=== PATIENT | female | born 1930 | race Caucasian/White ===

== ENCOUNTER 2020-04-11 17:53 | Inpatient (IN) | payer MEDICARE, OTHER ==
[2020-04-11] MEDS ORDERED: Senokot 8.6 MG TAB PO PRN (23:13)
[2020-04-11] MEDS ORDERED: Dextrose 5% in Water 1,000 ML IV PRN (23:17)
[2020-04-11] MEDS ORDERED: Dextrose 50% Abboject 50 ML SYRINGE IVP PRN (23:17)
[2020-04-12] MEDS: Levothyroxine Sodium 100 MCG TAB PO SCH (05:17)
[2020-04-12 08:23] LABS: INR-International Normal Ratio 1.9; Prothrombin Time 21.7 sec (12.0-14.7)
[2020-04-12] MEDS: metFORMIN 500 MG TAB PO SCH (08:50)
[2020-04-12] MEDS: Furosemide 20 MG TAB PO SCH ×2 (08:50→09:47)
[2020-04-12] MEDS: Lisinopril 10 MG TAB PO SCH ×2 (08:51→09:47)
[2020-04-12] MEDS: Metoprolol Tartrate 25 MG TAB PO SCH ×2 (08:51→09:47)
[2020-04-12] MEDS: Hydrochlorothiazide 25 MG TAB PO SCH ×2 (08:51→09:47)
[2020-04-12] MEDS: HumaLOG 300 UNITS/3 ML VIAL SC PRN ×2 (08:55→12:45)
[2020-04-12] MEDS: Lantus 1000 UNITS/10 ML VIAL SC SCH ×2 (08:55→20:52)
[2020-04-12] MEDS: Warfarin Sodium 2.5 MG TAB PO SCH (16:59)
[2020-04-12] MEDS: Warfarin Sodium 5 MG TAB PO SCH (16:59)
[2020-04-12] MEDS: Atorvastatin Calcium 10 MG TAB PO SCH (21:01)
--- NOTE | 2020-04-12 23:42 | HP ---
REASON FOR ADMISSION: For skilled rehabilitation at [facility] status post acute encephalopathy, acute congestive heart failure, and physical deconditioning. HISTORY OF PRESENT ILLNESS: Ms. Jones is a very pleasant 89-year-old female, who lives in [place] by herself. The patient was brought to the emergency room by paramedics for altered mental status. Upon admission, she was not in any position of giving any history and the patient's power of family law attorney was unable to provide any history as they could not get him on the phone at that time. Patient en route to the ER, was given Ativan 4 mg and morphine due to some back pain. In the emergency room, she received Rocephin and a COVID screen was sent, which turned out to be negative. Chest x-ray was normal, but showed some mild cardiomegaly and her urine was benign. The patient did have some leukocytosis, so the decision was made to admit the patient for further workup and care. She had an MRI of the brain on the 06 of April and that showed no acute abnormalities. She had an EEG which was negative. She had an echocardiogram which showed an EF of 50% to 55%. The patient's etiology for the metabolic encephalopathy was unclear, but she was improving and leukocytosis also slowly improved. The patient does have a history of chronic kidney disease stage 3 and that was consistent. She appeared to have some pulmonary vascular congestion and cardiomegaly on a chest x-ray. She received Lasix upon admission. The patient's condition slowly improved, but she was noted to be very deconditioned and since she lives by herself, the decision was made to transfer the patient to a swing bed prior to discharge back to her home. Upon evaluation of the patient today, she was happy to be in facility and start physical therapy. She was little bit upset about her health and is concerned about not knowing the etiology of the encephalopathy. She is worried as she lives by herself. The patient states she does have a provider that comes to cook and clean for her. She does not have any family around, but she does have a power of family law attorney, who comes to her home to see her pretty frequently. PAST MEDICAL HISTORY: Atrial fibrillation. The patient's chronic anticoagulants were warfarin. The patient does have a history of pulmonary embolism. She does have a history of dementia. She does have diabetes and hypothyroidism. PAST SURGICAL HISTORY: Total hip replacement, bilateral; carpal tunnel release, bilateral. PAST FAMILY HISTORY: Unremarkable. SOCIAL HISTORY: The patient lives by herself in her home. She denies any tobacco, alcohol, or illicit drug use. CODE STATUS: The patient is a DNR. REVIEW OF SYSTEMS: As noted in H and P. Otherwise, all other systems reviewed x14 were negative. HOME MEDICATIONS: Lipitor 10 at bedtime; furosemide 20 daily; hydrochlorothiazide 12.5 daily; Lantus 10 subcu b.i.d.; levothyroxine 100 mcg daily; lisinopril 10 daily; metformin 1000 daily; metoprolol 25 daily; warfarin 7.5 mg Saturday, Saturday, , Saturday and 5 mg Saturday, Saturday, Saturday. PHYSICAL EXAMINATION: VITAL SIGNS: Temperature 98.6, pulse 86, respirations 16, O2 saturation 96% on room air, blood pressure 117/71. GENERAL: The patient is alert, awake, and oriented x3. She is very conversational, but tearful talking about her health today. She is sitting comfortably in bed. HEENT: Normocephalic, atraumatic. Moist oral mucous membrane. NECK: Supple. No JVD. No carotid bruit. RESPIRATORY: Clear to auscultation bilateral. No wheezing. No crackles. CARDIOVASCULAR: S1 and S2. No murmurs, no gallops, no rubs. ABDOMEN: Positive bowel sounds. Soft, nontender. No guarding. No rigidity. EXTREMITIES: +1 bilateral edema. SKIN: No lesions. No rashes. NEUROLOGICAL: No focal deficits. Cranial nerves 2 through 12 grossly intact. MUSCULOSKELETAL: Generalized weakness. PSYCHIATRIC: Flat affect. Alert, awake, and oriented x3. ASSESSMENT: 1. Acute metabolic encephalopathy, resolved. 2. Physical deconditioning. 3. Atrial fibrillation. 4. Chronic kidney disease stage 3. 5. Dementia without behavior disturbance. 6. Diabetes type 2. 7. Hypercalcemia. 8. Unspecified parathyroidism. 9. Leukocytosis, improving. 10. Hypertension. 11. Hypothyroidism. PLAN: The patient is an 89-year-old female, who is being admitted to [facility]. We will consult Physical Therapy to help with gait stability and strengthening. We will consult Occupational Therapy to help with activities of daily living. We will consult Speech Therapy with diet consistency. We will monitor the patient closely for any hemodynamic instability. We will place the patient on Accu-Chek before meals and at bedtime. Estimated length of stay, 2 to 3 weeks. Code status is DNR. DISCHARGE DISPOSITION: Back to her home. Job ID: [id number] MTDD
[2020-04-13] MEDS: Acetaminophen 325 MG TAB PO PRN ×2 (01:55→21:32)
[2020-04-13] MEDS: Levothyroxine Sodium 100 MCG TAB PO SCH (05:02)
[2020-04-13 05:35] LABS: INR-International Normal Ratio 1.6; Prothrombin Time 18.8 sec (12.0-14.7)
[2020-04-13] MEDS: metFORMIN 500 MG TAB PO SCH (08:26)
[2020-04-13] MEDS: Lantus 1000 UNITS/10 ML VIAL SC SCH ×2 (08:26→21:32)
[2020-04-13] MEDS: Hydrochlorothiazide 25 MG TAB PO SCH (08:54)
[2020-04-13] MEDS: Furosemide 20 MG TAB PO SCH (08:54)
[2020-04-13] MEDS: Metoprolol Tartrate 25 MG TAB PO SCH (08:54)
[2020-04-13] MEDS: Lisinopril 10 MG TAB PO SCH (08:54)
[2020-04-13] MEDS: HumaLOG 300 UNITS/3 ML VIAL SC PRN (12:06)
[2020-04-13] MEDS: Warfarin Sodium 5 MG TAB PO SCH (16:51)
[2020-04-13] MEDS: Atorvastatin Calcium 10 MG TAB PO SCH (21:31)
[2020-04-14] MEDS: Acetaminophen 325 MG TAB PO PRN (05:28)
[2020-04-14] MEDS: Levothyroxine Sodium 100 MCG TAB PO SCH (05:28)
[2020-04-14 05:57] LABS: INR-International Normal Ratio 1.5; Prothrombin Time 18.2 sec (12.0-14.7)
[2020-04-14] MEDS: Furosemide 20 MG TAB PO SCH (08:28)
[2020-04-14] MEDS: metFORMIN 500 MG TAB PO SCH (08:28)
[2020-04-14] MEDS: Lantus 1000 UNITS/10 ML VIAL SC SCH ×2 (08:32→21:20)
[2020-04-14] MEDS: HumaLOG 300 UNITS/3 ML VIAL SC PRN (12:46)
[2020-04-14] MEDS: Warfarin Sodium 2.5 MG TAB PO SCH (17:05)
[2020-04-14] MEDS: Warfarin Sodium 5 MG TAB PO SCH (17:05)
[2020-04-14] MEDS: Loratadine 10 MG TAB PO PRN (21:20)
[2020-04-14] MEDS: Atorvastatin Calcium 10 MG TAB PO SCH (21:20)
[2020-04-15] MEDS: Levothyroxine Sodium 100 MCG TAB PO SCH (05:34)
[2020-04-15 05:49] LABS: INR-International Normal Ratio 1.6
[2020-04-15] MEDS: metFORMIN 500 MG TAB PO SCH (08:33)
[2020-04-15] MEDS: Lantus 1000 UNITS/10 ML VIAL SC SCH ×2 (08:33→21:38)
[2020-04-15] MEDS: Furosemide 20 MG TAB PO SCH (08:33)
[2020-04-15] MEDS: HumaLOG 300 UNITS/3 ML VIAL SC PRN (12:07)
[2020-04-15] MEDS: Warfarin Sodium 5 MG TAB PO SCH (16:34)
[2020-04-15] MEDS: Loratadine 10 MG TAB PO PRN (16:34)
[2020-04-15] MEDS: Atorvastatin Calcium 10 MG TAB PO SCH (21:38)
[2020-04-15] MEDS: Acetaminophen 325 MG TAB PO PRN (23:39)
[2020-04-16 05:57] LABS: Prothrombin Time 22.5 sec (12.0-14.7)
[2020-04-16] MEDS: Levothyroxine Sodium 100 MCG TAB PO SCH (06:06)
[2020-04-16] MEDS: metFORMIN 500 MG TAB PO SCH (08:35)
[2020-04-16] MEDS: Furosemide 20 MG TAB PO SCH (08:35)
[2020-04-16] MEDS: Loratadine 10 MG TAB PO PRN (08:35)
[2020-04-16] MEDS: Lantus 1000 UNITS/10 ML VIAL SC SCH ×2 (08:35→21:35)
[2020-04-16] MEDS: HumaLOG 300 UNITS/3 ML VIAL SC PRN (12:12)
[2020-04-16] MEDS: Warfarin Sodium 2.5 MG TAB PO SCH (17:22)
[2020-04-16] MEDS: Warfarin Sodium 5 MG TAB PO SCH (17:22)
[2020-04-16] MEDS: Acetaminophen 325 MG TAB PO PRN (21:35)
[2020-04-16] MEDS: Atorvastatin Calcium 10 MG TAB PO SCH (21:35)
[2020-04-17] MEDS: Levothyroxine Sodium 100 MCG TAB PO SCH (05:16)
[2020-04-17 06:19] LABS: INR-International Normal Ratio 2.2; Prothrombin Time 24.2 sec (12.0-14.7)
[2020-04-17] MEDS: metFORMIN 500 MG TAB PO SCH (08:28)
[2020-04-17] MEDS: Loratadine 10 MG TAB PO PRN (08:29)
[2020-04-17] MEDS: Furosemide 20 MG TAB PO SCH (08:29)
[2020-04-17] MEDS: Lantus 1000 UNITS/10 ML VIAL SC SCH ×2 (08:29→21:20)
[2020-04-17] MEDS: Warfarin Sodium 2.5 MG TAB PO SCH (16:51)
[2020-04-17] MEDS: Warfarin Sodium 5 MG TAB PO SCH (16:51)
[2020-04-17] MEDS: Acetaminophen 325 MG TAB PO PRN (20:04)
[2020-04-17] MEDS: Atorvastatin Calcium 10 MG TAB PO SCH (20:05)
[2020-04-18] MEDS: Levothyroxine Sodium 100 MCG TAB PO SCH (05:29)
[2020-04-18 05:52] LABS: INR-International Normal Ratio 2.4; Prothrombin Time 25.8 sec (12.0-14.7)
[2020-04-18] MEDS: metFORMIN 500 MG TAB PO SCH (08:41)
[2020-04-18] MEDS: Furosemide 20 MG TAB PO SCH (08:42)
[2020-04-18] MEDS: Lantus 1000 UNITS/10 ML VIAL SC SCH ×2 (08:42→21:27)
[2020-04-18] MEDS: Acetaminophen 325 MG TAB PO PRN ×2 (16:50→21:27)
[2020-04-18] MEDS: Warfarin Sodium 5 MG TAB PO SCH (16:51)
[2020-04-18] MEDS: Atorvastatin Calcium 10 MG TAB PO SCH (21:27)
[2020-04-19 05:49] LABS: INR-International Normal Ratio 2.4; Prothrombin Time 26.1 sec (12.0-14.7)
[2020-04-19] MEDS: Levothyroxine Sodium 100 MCG TAB PO SCH (05:52)
[2020-04-19] MEDS: Furosemide 20 MG TAB PO SCH (08:07)
[2020-04-19] MEDS: Loratadine 10 MG TAB PO PRN (08:07)
[2020-04-19] MEDS: metFORMIN 500 MG TAB PO SCH (08:08)
[2020-04-19] MEDS: Lantus 1000 UNITS/10 ML VIAL SC SCH ×2 (08:08→21:07)
[2020-04-19] MEDS: Warfarin Sodium 5 MG TAB PO SCH (17:03)
[2020-04-19] MEDS: Warfarin Sodium 2.5 MG TAB PO SCH (17:04)
[2020-04-19] MEDS: Acetaminophen 325 MG TAB PO PRN ×2 (17:07→20:07)
[2020-04-19] MEDS: Atorvastatin Calcium 10 MG TAB PO SCH (20:02)
[2020-04-20] MEDS: Levothyroxine Sodium 100 MCG TAB PO SCH (05:24)
[2020-04-20 06:00] LABS: INR-International Normal Ratio 2.3; Prothrombin Time 25.2 sec (12.0-14.7)
[2020-04-20] MEDS: Loratadine 10 MG TAB PO PRN (07:54)
[2020-04-20] MEDS: Furosemide 20 MG TAB PO SCH (07:55)
[2020-04-20] MEDS: metFORMIN 500 MG TAB PO SCH (07:55)
[2020-04-20] MEDS: Lantus 1000 UNITS/10 ML VIAL SC SCH ×2 (07:56→20:21)
[2020-04-20] MEDS: Acetaminophen 325 MG TAB PO PRN ×2 (07:59→20:25)
[2020-04-20] MEDS: Warfarin Sodium 5 MG TAB PO SCH (17:09)
[2020-04-20] MEDS: Atorvastatin Calcium 10 MG TAB PO SCH (20:20)
[2020-04-21] MEDS: Levothyroxine Sodium 100 MCG TAB PO SCH (05:32)
[2020-04-21 05:49] LABS: INR-International Normal Ratio 2.3; Prothrombin Time 24.8 sec (12.0-14.7)
[2020-04-21] MEDS: Furosemide 20 MG TAB PO SCH (08:15)
[2020-04-21] MEDS: metFORMIN 500 MG TAB PO SCH (08:15)
[2020-04-21] MEDS: Lantus 1000 UNITS/10 ML VIAL SC SCH ×2 (08:16→20:17)
[2020-04-21] MEDS: Loratadine 10 MG TAB PO PRN (17:15)
[2020-04-21] MEDS: Warfarin Sodium 5 MG TAB PO SCH (17:16)
[2020-04-21] MEDS: Warfarin Sodium 2.5 MG TAB PO SCH (17:16)
[2020-04-21] MEDS: Atorvastatin Calcium 10 MG TAB PO SCH (20:18)
[2020-04-21] MEDS: Acetaminophen 325 MG TAB PO PRN (20:21)
[2020-04-22] MEDS: Levothyroxine Sodium 100 MCG TAB PO SCH (05:24)
[2020-04-22 05:50] LABS: INR-International Normal Ratio 2.4; Prothrombin Time 25.7 sec (12.0-14.7)
[2020-04-22] MEDS: metFORMIN 500 MG TAB PO SCH (09:56)
[2020-04-22] MEDS: Acetaminophen 325 MG TAB PO PRN ×2 (09:56→20:46)
[2020-04-22] MEDS: Furosemide 20 MG TAB PO SCH (09:57)
[2020-04-22] MEDS: Lantus 1000 UNITS/10 ML VIAL SC SCH ×2 (09:57→20:47)
[2020-04-22] MEDS: Warfarin Sodium 5 MG TAB PO SCH (17:23)
[2020-04-22] MEDS: Atorvastatin Calcium 10 MG TAB PO SCH (20:47)
[2020-04-23] MEDS: Levothyroxine Sodium 100 MCG TAB PO SCH (05:28)
[2020-04-23] MEDS: metFORMIN 500 MG TAB PO SCH (09:01)
[2020-04-23] MEDS: Lantus 1000 UNITS/10 ML VIAL SC SCH ×2 (09:01→20:29)
[2020-04-23] MEDS: Furosemide 20 MG TAB PO SCH (09:01)
[2020-04-23] MEDS: Warfarin Sodium 2.5 MG TAB PO SCH (17:20)
[2020-04-23] MEDS: Warfarin Sodium 5 MG TAB PO SCH (17:21)
[2020-04-23] MEDS: Atorvastatin Calcium 10 MG TAB PO SCH (20:29)
[2020-04-23] MEDS: Acetaminophen 325 MG TAB PO PRN (20:32)
[2020-04-24] MEDS: Acetaminophen 325 MG TAB PO PRN ×2 (04:51→20:52)
[2020-04-24] MEDS: Levothyroxine Sodium 100 MCG TAB PO SCH (04:53)
[2020-04-24] MEDS: Loratadine 10 MG TAB PO PRN (04:53)
[2020-04-24] MEDS: metFORMIN 500 MG TAB PO SCH (08:29)
[2020-04-24] MEDS: Furosemide 20 MG TAB PO SCH (08:29)
[2020-04-24] MEDS: Lantus 1000 UNITS/10 ML VIAL SC SCH ×2 (08:29→20:51)
[2020-04-24] MEDS: Warfarin Sodium 5 MG TAB PO SCH (17:07)
[2020-04-24] MEDS: Warfarin Sodium 2.5 MG TAB PO SCH (17:07)
[2020-04-24] MEDS: Atorvastatin Calcium 10 MG TAB PO SCH (20:52)
[2020-04-25] MEDS: Levothyroxine Sodium 100 MCG TAB PO SCH (05:52)
[2020-04-25] MEDS: Furosemide 20 MG TAB PO SCH (07:58)
[2020-04-25] MEDS: metFORMIN 500 MG TAB PO SCH (07:58)
[2020-04-25] MEDS: Lantus 1000 UNITS/10 ML VIAL SC SCH ×2 (07:59→21:03)
[2020-04-25 09:12] LABS: INR-International Normal Ratio 2.1; Prothrombin Time 23.8 sec (12.0-14.7)
[2020-04-25] MEDS ORDERED: Loratadine 10 MG TAB PO SCH (15:45)
[2020-04-25] MEDS: Warfarin Sodium 5 MG TAB PO SCH (16:59)
[2020-04-25] MEDS: Polyethylene Glycol OPTH DROP 15 ML BOT EA EYE PRN ×2 (16:59→21:01)
[2020-04-25] MEDS: Acetaminophen 325 MG TAB PO PRN (21:00)
[2020-04-25] MEDS: Atorvastatin Calcium 10 MG TAB PO SCH (21:01)
[2020-04-26] MEDS: Levothyroxine Sodium 100 MCG TAB PO SCH (05:41)
[2020-04-26] MEDS: metFORMIN 500 MG TAB PO SCH (08:06)
[2020-04-26] MEDS: Loratadine 10 MG TAB PO SCH (08:06)
[2020-04-26] MEDS: Furosemide 20 MG TAB PO SCH (08:07)
[2020-04-26] MEDS: Lantus 1000 UNITS/10 ML VIAL SC SCH ×2 (08:07→20:36)
[2020-04-26] MEDS: Warfarin Sodium 7.5 MG TAB PO SCH (16:59)
[2020-04-26] MEDS: Acetaminophen 325 MG TAB PO PRN (17:07)
[2020-04-26] MEDS: Atorvastatin Calcium 10 MG TAB PO SCH (20:35)
[2020-04-27 05:51] LABS: INR-International Normal Ratio 2.4
[2020-04-27] MEDS: Levothyroxine Sodium 100 MCG TAB PO SCH (06:00)
[2020-04-27] MEDS: Acetaminophen 325 MG TAB PO PRN ×2 (06:01→20:37)
[2020-04-27] MEDS: Polyethylene Glycol OPTH DROP 15 ML BOT EA EYE PRN ×2 (08:04→20:34)
[2020-04-27] MEDS: Lantus 1000 UNITS/10 ML VIAL SC SCH ×2 (08:04→20:34)
[2020-04-27] MEDS: Loratadine 10 MG TAB PO SCH (08:05)
[2020-04-27] MEDS: metFORMIN 500 MG TAB PO SCH (08:05)
[2020-04-27] MEDS: Furosemide 20 MG TAB PO SCH (08:05)
[2020-04-27] MEDS: Warfarin Sodium 5 MG TAB PO SCH (17:31)
[2020-04-27] MEDS: Atorvastatin Calcium 10 MG TAB PO SCH (20:34)
[2020-04-28] MEDS: Levothyroxine Sodium 100 MCG TAB PO SCH (05:15)
[2020-04-28 06:01] LABS: INR-International Normal Ratio 2.6; Prothrombin Time 27.3 sec (12.0-14.7)
[2020-04-28] MEDS: metFORMIN 500 MG TAB PO SCH (09:26)
[2020-04-28] MEDS: Furosemide 20 MG TAB PO SCH (09:26)
[2020-04-28] MEDS: Loratadine 10 MG TAB PO SCH (09:27)
[2020-04-28] MEDS: Lantus 1000 UNITS/10 ML VIAL SC SCH ×2 (09:29→20:53)
[2020-04-28] MEDS: Warfarin Sodium 7.5 MG TAB PO SCH (17:51)
[2020-04-28] MEDS: Atorvastatin Calcium 10 MG TAB PO SCH (20:53)
[2020-04-28] MEDS: Acetaminophen 325 MG TAB PO PRN (20:53)
[2020-04-29 05:51] LABS: INR-International Normal Ratio 2.6; Prothrombin Time 27.8 sec (12.0-14.7)
[2020-04-29] MEDS: Levothyroxine Sodium 100 MCG TAB PO SCH (05:52)
[2020-04-29] MEDS: metFORMIN 500 MG TAB PO SCH (08:50)
[2020-04-29] MEDS: Furosemide 20 MG TAB PO SCH (08:50)
[2020-04-29] MEDS: Polyethylene Glycol OPTH DROP 15 ML BOT EA EYE PRN (08:51)
[2020-04-29] MEDS: Loratadine 10 MG TAB PO SCH (08:51)
[2020-04-29] MEDS: Lantus 1000 UNITS/10 ML VIAL SC SCH ×2 (08:52→20:53)
[2020-04-29] MEDS: Warfarin Sodium 5 MG TAB PO SCH (17:35)
[2020-04-29] MEDS: Atorvastatin Calcium 10 MG TAB PO SCH (20:51)
[2020-04-29] MEDS: Acetaminophen 325 MG TAB PO PRN (20:51)
[2020-04-30] MEDS: Levothyroxine Sodium 100 MCG TAB PO SCH (05:20)
[2020-04-30 06:09] LABS: INR-International Normal Ratio 2.8; Prothrombin Time 29.2 sec (12.0-14.7)
[2020-04-30] MEDS: Polyethylene Glycol OPTH DROP 15 ML BOT EA EYE PRN ×2 (09:02→20:57)
[2020-04-30] MEDS: metFORMIN 500 MG TAB PO SCH (09:02)
[2020-04-30] MEDS: Lantus 1000 UNITS/10 ML VIAL SC SCH ×2 (09:03→20:56)
[2020-04-30] MEDS: Furosemide 20 MG TAB PO SCH (09:03)
[2020-04-30] MEDS: Loratadine 10 MG TAB PO SCH (09:03)
[2020-04-30] MEDS: HumaLOG 300 UNITS/3 ML VIAL SC PRN (11:56)
[2020-04-30] MEDS: Warfarin Sodium 7.5 MG TAB PO SCH (16:58)
[2020-04-30] MEDS: Atorvastatin Calcium 10 MG TAB PO SCH (20:56)
[2020-04-30] MEDS: Acetaminophen 325 MG TAB PO PRN (20:56)
[2020-05-01 06:10] LABS: INR-International Normal Ratio 2.8; Prothrombin Time 29.3 sec (12.0-14.7)
[2020-05-01] MEDS: Levothyroxine Sodium 100 MCG TAB PO SCH (06:14)
[2020-05-01] MEDS: Lantus 1000 UNITS/10 ML VIAL SC SCH ×2 (08:45→20:45)
[2020-05-01] MEDS: Polyethylene Glycol OPTH DROP 15 ML BOT EA EYE PRN ×2 (08:45→20:45)
[2020-05-01] MEDS: Loratadine 10 MG TAB PO SCH (08:46)
[2020-05-01] MEDS: Furosemide 20 MG TAB PO SCH (08:46)
[2020-05-01] MEDS: metFORMIN 500 MG TAB PO SCH (08:46)
[2020-05-01] MEDS: Warfarin Sodium 7.5 MG TAB PO SCH (17:08)
[2020-05-01] MEDS: Acetaminophen 325 MG TAB PO PRN (20:45)
[2020-05-01] MEDS: Atorvastatin Calcium 10 MG TAB PO SCH (20:45)
[2020-05-02] MEDS: Levothyroxine Sodium 100 MCG TAB PO SCH (05:23)
[2020-05-02 06:02] LABS: Prothrombin Time 31.2 sec (12.0-14.7)
[2020-05-02] MEDS: metFORMIN 500 MG TAB PO SCH (09:47)
[2020-05-02] MEDS: Loratadine 10 MG TAB PO SCH (09:48)
[2020-05-02] MEDS: Furosemide 20 MG TAB PO SCH (09:48)
[2020-05-02] MEDS: Lantus 1000 UNITS/10 ML VIAL SC SCH ×2 (09:48→20:37)
[2020-05-02 13:48] VITALS: BMI 37.8
[2020-05-02] MEDS: Warfarin Sodium 5 MG TAB PO SCH (17:09)
[2020-05-02] MEDS: Polyethylene Glycol OPTH DROP 15 ML BOT EA EYE PRN (20:36)
[2020-05-02] MEDS: Atorvastatin Calcium 10 MG TAB PO SCH (20:37)
[2020-05-02] MEDS: Acetaminophen 325 MG TAB PO PRN (20:37)
[2020-05-03] MEDS: Levothyroxine Sodium 100 MCG TAB PO SCH (05:30)
[2020-05-03 05:53] LABS: INR-International Normal Ratio 3.2; Prothrombin Time 32.2 sec (12.0-14.7)
[2020-05-03 05:54] LABS: #Basophils 0.1 thou/uL (0.0-0.2); #Eosinphils 0.3 thou/uL (0.0-0.7); #Monocytes 0.7 thou/uL (0.11-0.59); #Neutrophils 3.5 thou/uL (1.40-6.50); %Basophils 1.6 % (0.0-1.0); %Eosinophils 4.6 % (0.0-10.0); %Lymphocytes 30.7 % (21.0-51.0); %Monocytes 10.2 % (0.0-10.0); %Neutrophils 52.9 % (42.0-75.0); Hemoglobin 12.4 g/dL (12.0-16.0); Mean Corpuscular HGB CONC 31.5 g/dL (32.0-36.0); Mean Corpuscular Hemoglobin 30.1 pg (27.0-31.0); Mean Corpuscular Volume 95.6 fL (78.0-98.0); Mean Platelet Volume 10.7 fL (7.4-10.4); Platelet Count 147 thou/uL (130-400); RBC Distribution Width 12.6 % (11.5-14.5); Red Blood Cell (RBC) Count 4.12 mill/uL (4.20-5.40); White Blood Cell (WBC) Count 6.6 thou/uL (4.8-10.8)
[2020-05-03 06:02] LABS: Anion Gap 12 mmol/L (10-20); BUN (Urea Nitrogen) 17 mg/dL (9.8-20.1); Calc. Creatinine Clearance 74 mL/min (70-130); Calcium 9.7 mg/dL (7.8-10.44); Carbon Dioxide 27 mmol/L (23-31); Chloride 107 mmol/L (98-107); Estimated GFR-MDRD 61; Glucose 67 mg/dL (83-110); Potassium 3.7 mmol/L (3.5-5.1); Sodium 142 mmol/L (136-145)
[2020-05-03] MEDS: metFORMIN 500 MG TAB PO SCH (08:26)
[2020-05-03] MEDS: Loratadine 10 MG TAB PO SCH (08:26)
[2020-05-03] MEDS: Furosemide 20 MG TAB PO SCH (08:26)
[2020-05-03] MEDS: Polyethylene Glycol OPTH DROP 15 ML BOT EA EYE PRN ×2 (08:27→22:02)
[2020-05-03] MEDS: Lantus 1000 UNITS/10 ML VIAL SC SCH ×2 (08:27→22:03)
[2020-05-03] MEDS: Acetaminophen 325 MG TAB PO PRN ×2 (08:27→22:02)
[2020-05-03] MEDS ORDERED: Warfarin Sodium 7.5 MG TAB PO SCH (08:45)
[2020-05-03] MEDS: Atorvastatin Calcium 10 MG TAB PO SCH (22:02)
[2020-05-04] MEDS: Levothyroxine Sodium 100 MCG TAB PO SCH (05:35)
[2020-05-04 05:48] LABS: INR-International Normal Ratio 2.8; Prothrombin Time 28.9 sec (12.0-14.7)
[2020-05-04 06:33] VITALS: BP 143/85; TEMP 97.8
[2020-05-04] MEDS: Polyethylene Glycol OPTH DROP 15 ML BOT EA EYE PRN (08:27)
[2020-05-04] MEDS: Lantus 1000 UNITS/10 ML VIAL SC SCH (08:28)
[2020-05-04] MEDS: Loratadine 10 MG TAB PO SCH (08:28)
[2020-05-04] MEDS: metFORMIN 500 MG TAB PO SCH (08:28)
[2020-05-04] MEDS: Furosemide 20 MG TAB PO SCH (08:28)
[2020-05-04] MEDS ORDERED: metFORMIN 500 MG TAB PO SCH (17:00)
--- NOTE | 2020-05-05 01:23 | DIS ---
DATE OF ADMISSION: 04/11/2020 DATE OF DISCHARGE: 05/04/2020 ADMITTING AND DISCHARGE PHYSICIAN: Nohelia Fatima MD DISCHARGE DISPOSITION: To [facility]. DISCHARGE INSTRUCTIONS: Weekly PT/INR with a goal of INR between 2 and 3. CBC, CMP, TSH, free T4, and hemoglobin A1c in 1 week. The patient to start PT, OT services at senior living. The patient to be seen by primary care physician, which is myself within a week. The patient to ambulate with a four-wheeled walker at all times. ACTIVITY: As tolerated. DIET: Diabetic and Coumadin prudent diet. DISCHARGE MEDICATIONS: 1. Tylenol 650 q.4 p.r.n. 2. Lipitor 10 mg at bedtime. 3. Furosemide 20 mg daily. 4. Lantus 10 units b.i.d. 5. Levothyroxine 100 mcg daily. 6. Lisinopril/hydrochlorothiazide 10/12.5 daily. 7. Loratadine 10 mg daily. 8. Metformin 1000 b.i.d. 9. Protonix 40 daily. 10. Senokot two tabs daily p.r.n. constipation. 11. Systane ophthalmic solution two drops in each eye p.r.n. dry eyes. 12. Zoloft 25 mg daily. 13. Warfarin 5 mg Saturday, Saturday, Saturday and 7.5 mg Saturday, Saturday, , Saturday. CODE STATUS: The patient is a DNAR. BRIEF HOSPITAL COURSE: Ms. Robert Duff is a very pleasant 89-year-old female, who was admitted to [facility] in [place] on April 11, 2020 after the patient was in [facility] due to acute encephalopathy, acute congestive heart failure, and physical deconditioning. Ms. Jones was brought to the emergency room by paramedics due to altered mental status. She was noted to have some leukocytosis, altered mental status and she had an echocardiogram, which shows an EF of 50% to 55%. The patient's leukocytosis slowly improved and she was noted to also have chronic kidney disease stage 3. The patient's acute encephalopathy slowly resolved and she returned back to her baseline. She was noted to be very deconditioned and since she lives by herself, the decision was made to transfer her to skilled rehabilitation. During admission here, the patient progressively improved. She was able to ambulate with a rolling walker. The patient has a power of commonwealth attorney, Mr. Vik Donis, who was very involved with her care. The patient on day of admission was able to ambulate with a rolling walker about 80 feet. She does live by herself. She has no family and the patient and POA decided it was in the patient's best interest to be admitted to a senior living for long-term care. The decision was made to transfer the patient to [facility] in a stable condition and for the patient to continue skilled rehabilitation over there. Initially, the patient had episodes of hypotension during hospitalization, but this progressively improved. The patient's INR was monitored daily and on day of discharge, the INR was 2.8. Discharge vital signs; temperature 97.8, pulse 67, respirations 18, O2 saturation 97% on room air, and blood pressure 143/85. Job ID: [id number] MTDD
== END 2020-05-04 11:38 | DRG 71 ==
LOC: MADMS 17:53
PROVIDERS: ADMIT Family Medicine; ATTEND Family Medicine
DX: G93.41 Metabolic encephalopathy (principal); I48.20 Chronic atrial fibrillation, unspecified; I13.0 Hypertensive heart and chronic kidney disease with heart failure and stage 1 through stage 4 chronic kidney disease, or unspecified chronic kidney disease; I50.9 Heart failure, unspecified; R53.81 Other malaise; N18.3 Chronic kidney disease, stage 3 (moderate); E03.9 Hypothyroidism, unspecified; I95.9 Hypotension, unspecified; Z66 Do not resuscitate; F03.90 Unspecified dementia, unspecified severity, without behavioral disturbance, psychotic disturbance, mood disturbance, and anxiety; Z96.643 Presence of artificial hip joint, bilateral; E11.22 Type 2 diabetes mellitus with diabetic chronic kidney disease; E83.52 Hypercalcemia; Z79.01 Long term (current) use of anticoagulants; Z86.711 Personal history of pulmonary embolism
CPT/HCPCS: 36415; 36416; 80048; 85025; 85610; J1815

== ENCOUNTER 2020-08-12 13:13 | Emergency (ER) | payer MEDICARE, OTHER ==
[2020-08-12] MEDS ORDERED: Ondansetron PF 4 MG/2 ML Vial ONE (13:40)
[2020-08-12 13:46] LABS: Band 2 % (5-11); Hemoglobin 11.8 g/dL (12.0-16.0); Lymphocytes 3 % (21-51); MDiff Complete? YES; Mean Corpuscular HGB CONC 32.3 g/dL (32.0-36.0); Mean Corpuscular Hemoglobin 29.5 pg (27.0-31.0); Mean Corpuscular Volume 91.5 fL (78.0-98.0); Mean Platelet Volume 9.5 fL (7.4-10.4); Monocytes 4 % (0-10); Neutrophil 91 % (42-75); Platelet Count 312 thou/uL (130-400); Platelet Morphology Comment Appears Adequate; RBC Distribution Width 12.7 % (11.5-14.5); Red Blood Cell (RBC) Count 4.01 mill/uL (4.20-5.40); White Blood Cell (WBC) Count 20.1 thou/uL (4.8-10.8)
[2020-08-12 13:47] LABS: ALT (SGPT) 22 U/L (8-55); AST (SGOT) 31 U/L (5-34); Albumin 3.6 g/dL (3.4-4.8); Alkaline Phosphatase 76 U/L (40-110); Anion Gap 44 mmol/L (10-20); BUN (Urea Nitrogen) 67 mg/dL (9.8-20.1); Bilirubin, Total 0.4 mg/dL (0.2-1.2); CK (CPK) 600 U/L (29-168); Calc. Creatinine Clearance 0 mL/min (70-130); Calcium 8.2 mg/dL (7.8-10.44); Chloride 87 mmol/L (98-107); Estimated GFR-MDRD 8; Globulin 3.3 g/dL (2.4-3.5); Glucose 117 mg/dL (83-110); Lipase 36 U/L (8-78); Potassium 4.1 mmol/L (3.5-5.1); Protein, Total 6.9 g/dL (6.0-8.3); Sodium 135 mmol/L (136-145)
[2020-08-12 13:53] LABS: Carbon Dioxide 8 mmol/L (23-31)
[2020-08-12 14:03] LABS: Bilirubin Negative (Negative); Blood, Urine Small (Negative); Clarity Hazy (Clear); Glucose, Urine (Dipstick) Negative (Negative); Ketone, Urine 15 mg/dL (Negative); Leukocyte Negative (Negative); Nitrite Negative (Negative); Protein, Urine (Dipstick) Negative (Neg-Trace); Specific Gravity, Urine 1.015 (1.005-1.030); Urobilinogen 0.2 mg/dL (Less than 2)
[2020-08-12 14:04] LABS: Bacteria/HPF 3+ HPF (None Seen); RBC/HPF 0-3 HPF (0-3); WBC/HPF 0-3 HPF (0-3)
[2020-08-12] MEDS ORDERED: Sodium Chloride 0.9% 1,000 ML ONE (14:04)
[2020-08-12] MEDS ORDERED: Sodium Chloride 0.9% 100 ML ONE (14:04)
[2020-08-12] MEDS ORDERED: Cefepime 2 GM VIAL ONE (14:04)
--- NOTE | 2020-08-12 14:16 | RAD ---
EXAM: Single view of the chest HISTORY: Sepsis COMPARISON: 04/08/2020 FINDINGS: Single view of the chest shows an enlarged but stable cardiomediastinal silhouette. Athero sclerotic callus cages are seen in the aorta. There is no evidence of consolidation, mass, or pleural effusion. Degenerative changes are seen in the spine and shoulders. IMPRESSION: Cardiomegaly
[2020-08-12 14:52] LABS: CKMB 17.1 ng/mL (0-6.6)
--- NOTE | 2020-08-12 14:59 | CT ---
CT OF THE ABDOMEN AND PELVIS WITHOUT IV CONTRAST INDICATION: History of sepsis and abdominal pain COMPARISON: April 23, [address] the abdomen and pelvis FINDINGS: The lack of IV contrast limits evaluation of the solid organs of the abdomen and pelvis. ABDOMEN: Motion artifact limits image detail. Lung bases: Clear Liver: Calcified granuloma within the right hepatic lobe is stable. No additional focal hepatic lesio n. Gallbladder: Normal appearing. Pancreas: Normal. Adrenal glands: Normal. Spleen: Normal. Kidneys and ureters: Normal. No hydronephrosis. Vasculature: There are moderate vascular calcifications seen involving the visualized vasculature. Lymph nodes:No lymphadenopathy. Free fluid in abdomen:No free fluid is evident. PELVIS: Small and large bowel: There are scattered colonic diverticulosis without definite evidence of active diverticulitis. The stomach is moderately distended with fluid and gas. Appendix:Not definitely seen. Bladder: Normal. Rectal and perirectal soft tissues:Normal. Reproductive structures: Not well seen due to beam scatter artifact from bilateral total hip replacem ents. Free fluid in pelvis: No free fluid is evident. Lymphadenopathy pelvis: No lymphadenopathy is evident. Osseous structures: There is ankylosis at L4-5. There is severe multilevel spondylosis of the thoraco lumbar spine. Soft tissues:Normal. IMPRESSION: 1. No acute abnormality.
[2020-08-12 15:07] LABS: Base Excess-Venous -18.8 mmol/L (-2.0 to 3.0); Bicarbonate (HCO3v) 8.4 mmol/L (22.0-28.0); CO2 Tension (PvCO2) 24.4 mmHg (40.0-50.0); Calcium, Ionized 0.88 mmol/L (See Comments:); Chloride 95 mmol/L (98-107); Hemoglobin - Calc 11.6 g/dL (12.0-16.0); Sodium 127 mmol/L (138-145); T. Carbon Dioxide 9.2 mmol/L (22.0-28.0); vO2 Saturation-calc 96.2 % (60.0-85.0)
[2020-08-12] MEDS ORDERED: Sodium Chloride 0.9% 250 ML 250 ML ONE (15:15)
== END 2020-08-12 16:00 | disposition short-term general hospital (02) ==
LOC: MADERS 13:13
DX: A41.9 Sepsis, unspecified organism (principal); R74.02 Elevation of levels of lactic acid dehydrogenase [LDH]; D72.829 Elevated white blood cell count, unspecified; I48.91 Unspecified atrial fibrillation; E78.5 Hyperlipidemia, unspecified; E78.00 Pure hypercholesterolemia, unspecified; E11.649 Type 2 diabetes mellitus with hypoglycemia without coma
CPT/HCPCS: 36415; 36416; 51701; 71045; 74176; 80053; 81003; 81015; 82330; 82550; 82553; 82803; 83605; 83690; 83880; 84484; 85025; 87040; 87086; 93005; 94760; 96361; 96365; 96367; 96375; J0692; J2405; J3370; J3490; J7050